=== PATIENT | male | born 1940 | race Caucasian/White ===

== ENCOUNTER 2016-12-28 07:07 | Day surgery (SDC) | payer MEDICARE ==
[~2016-12-28] VITALS: Ht 182.9 cm; Wt 107.0 kg
[2016-12-28 07:42] VITALS: BP 139/88
[2016-12-28] MEDS ORDERED: LACTATED RINGERS 1,000 ML IV SCH (07:46)
[2016-12-28] MEDS ORDERED: ASPI-621 PO (07:50)
[2016-12-28] MEDS ORDERED: POTA10TA17 PO (07:50)
[2016-12-28] MEDS ORDERED: DUTA0.5C PO (07:50)
[2016-12-28] MEDS ORDERED: UBID100C19 PO (07:50)
[2016-12-28] MEDS ORDERED: ATEN100T PO (07:50)
[2016-12-28] MEDS ORDERED: LISI40TA PO (07:50)
[2016-12-28] MEDS ORDERED: LIDOCAINE 1%, 2ML SQ PRN (08:00)
[2016-12-28] MEDS ORDERED: MULT-82 PO (08:14)
[2016-12-28] MEDS ORDERED: SAW450CA2 PO (08:14)
[2016-12-28] MEDS ORDERED: FENTANYL PF 250 MCG/5ML ONE (09:12)
[2016-12-28] MEDS ORDERED: MIDAZOLAM 1 MG/ML, 2ML ONE (09:12)
[2016-12-28] MEDS ORDERED: GLYCOPYRROLATE 0.2MG/1ML ONE (09:28)
[2016-12-28] MEDS ORDERED: PROPOFOL 10 MG/ML, 20ML ONE (09:28)
[2016-12-28] MEDS ORDERED: NEOSTIGMINE 1 MG/ML, 10ML ONE (09:28)
[2016-12-28] MEDS ORDERED: ONDANSETRON 2MG/ML, 2ML ONE (09:28)
[2016-12-28] MEDS ORDERED: ROCURONIUM 10 MG/ML ONE (09:28)
[2016-12-28] MEDS ORDERED: DEXAMETHASONE 4 MG/ML, 5ML ONE (09:28)
[2016-12-28] MEDS ORDERED: CEFAZOLIN 1,000 MG ONE (09:28)
[2016-12-28] MEDS ORDERED: hydrALAzine 20 MG/ML, 1ML IV PRN (10:30)
[2016-12-28] MEDS ORDERED: ACETAMINOPHEN 325 MG TABLET PO PRN (10:30)
[2016-12-28] MEDS ORDERED: OXYcodone 5 MG/5 ML ORAL.SOL UDC PO PRN (10:30)
[2016-12-28] MEDS ORDERED: ONDANSETRON 2MG/ML, 2ML IVPush PRN (10:30)
[2016-12-28] MEDS ORDERED: HYDROmorphone 1 MG/ML, 1ML IV PRN (10:30)
[2016-12-28] MEDS ORDERED: LABETALOL 5MG/ML, 20ML IV PRN (10:30)
[2016-12-28] MEDS ORDERED: ALBUTEROL SULFATE 2.5 MG/3 ML NPPB PRN (10:30)
[2016-12-28] MEDS ORDERED: FENTANYL PF 100 MCG/2ML IV PRN (10:30)
[2016-12-28] MEDS ORDERED: PROMETHAZINE 25 MG/ML, 1ML IV PRN (10:30)
[2016-12-28] MEDS ORDERED: MEPERIDINE/PF 25MG/0.5ML IVPush PRN (10:30)
== END 2016-12-28 12:30 ==
LOC: OUT 07:07
PROVIDERS: ATTEND Urology
DX: D29.1 Benign neoplasm of prostate (principal); I10 Essential (primary) hypertension; E78.00 Pure hypercholesterolemia, unspecified; F17.210 Nicotine dependence, cigarettes, uncomplicated; R97.20 Elevated prostate specific antigen [PSA]; Z83.3 Family history of diabetes mellitus; Z80.9 Family history of malignant neoplasm, unspecified; Z79.82 Long term (current) use of aspirin
CPT/HCPCS: 52630; 88305; J0690; J1100; J2405; J2704; J2710; J7120; J2250; J3010; J3490